=== PATIENT | female | born 1970 | race Caucasian/White ===

== ENCOUNTER 2017-05-07 15:38 | Emergency (ER) | payer MEDICARE ==
[~2017-05-07] VITALS: Ht 162.6 cm; Wt 60.0 kg
[~2017-05-07 15:38] MED LIST: AVELOX400 MG PO; AZOR 10/20 M1 TABLET PO; PROTONIX40 MG PO; SINGULAIR10 MG PO; SYMBICORT60 INHALAT IH; VENTOLIN17 GM IH; VICODIN 5-5001 EACH PO; XANAX0.5 MG PO
[2017-05-07 16:19] LABS: HEMATOCRIT 40.2 % (36.0-46.0); MCH 32.6 PG (29.0-34.0); MCHC 34.6 G/DL (30.0-36.0); MCV 94.1 FL (83-99); PLATELET COUNT 253 K/uL (156-360); RBC DIS.WIDTH-CV 12.5 % (11.8-14.6); RBC DIS.WIDTH-SD 42.9 % (39-53); RED BLOOD COUNT 4.27 M/uL (3.80-5.20)
[2017-05-07 16:21] LABS: CHLORIDE 103 mEq/L (99-109); POTASSIUM 4.2 mEq/L (3.7-5.4); SODIUM 137 mEq/L (136-147)
[2017-05-07 16:22] LABS: GLUCOSE 135 mg/dL (70-99)
[2017-05-07 16:24] LABS: ANION GAP 11 MEQ/L (2-14)
[2017-05-07 16:26] LABS: GFR ESTIMATE (CALCULATED) > 59 mL/min/
[2017-05-07 16:27] LABS: UREA NITROGEN (BUN) 26 mg/dL (9-23)
[2017-05-07] MEDS ORDERED: DUONEB 2.5-0.5 M3 ML AEROSOL (19:07)
[2017-05-07] MEDS ORDERED: PREDNISONE20 MG PO (19:07)
[2017-05-07 19:21] VITALS: BP 157/84
== END 2017-05-07 19:22 | disposition home or self-care (01) ==
LOC: EME 15:38
DX: J45.21 Mild intermittent asthma with (acute) exacerbation (principal); I10 Essential (primary) hypertension; F17.200 Nicotine dependence, unspecified, uncomplicated; Z91.14 Patient's other noncompliance with medication regimen
CPT/HCPCS: 71020; 71250; 80048; 85027; 93005; 94640; 94640 76; 99281; 99285; J2930; J7040

== ENCOUNTER 2017-07-03 12:48 | Emergency (ER) | payer MEDICARE ==
[~2017-07-03] VITALS: Ht 162.6 cm; Wt 67.4 kg
[~2017-07-03 12:48] MED LIST changes: +DUONEB 2.5-0.5 M3 ML AEROSOL; +PREDNISONE20 MG PO
[2017-07-03 13:33] LABS: HEMATOCRIT 45.2 % (36.0-46.0); MCH 32.4 PG (29.0-34.0); MCHC 34.1 G/DL (30.0-36.0); MCV 95.2 FL (83-99); MEAN PLAT.VOLUME 10.6 uM^3 (9.5-12.4); PLATELET COUNT 263 K/uL (156-360); RBC DIS.WIDTH-CV 12.2 % (11.8-14.6); RBC DIS.WIDTH-SD 42.7 % (39-53); RED BLOOD COUNT 4.75 M/uL (3.80-5.20); WHITE BLOOD COUNT 9.5 K/uL (4.1-10.2)
[2017-07-03 13:44] LABS: CHLORIDE 106 mEq/L (99-109); SODIUM 140 mEq/L (136-147)
[2017-07-03 13:46] LABS: GLUCOSE 146 mg/dL (70-99)
[2017-07-03 13:47] LABS: ANION GAP 10 MEQ/L (2-14)
[2017-07-03 13:50] LABS: GFR ESTIMATE (CALCULATED) > 59 mL/min/
[2017-07-03 13:51] LABS: UREA NITROGEN (BUN) 13 mg/dL (9-23)
[2017-07-03] MEDS ORDERED: ANTIVERT25 MG PO (15:11)
[2017-07-03 16:40] VITALS: BP 140/77
== END 2017-07-03 16:43 | disposition home or self-care (01) ==
LOC: EME 12:48
DX: H81.11 Benign paroxysmal vertigo, right ear (principal); I10 Essential (primary) hypertension; J45.909 Unspecified asthma, uncomplicated; F17.200 Nicotine dependence, unspecified, uncomplicated; Z91.040 Latex allergy status; Z88.1 Allergy status to other antibiotic agents; Z91.041 Radiographic dye allergy status
CPT/HCPCS: 71020; 80048; 85027; 93005; 99281; 99284